=== PATIENT | male | born 1950 | race Caucasian/White ===

== ENCOUNTER → 2021-03-16 20:09 | Outpatient (CLI) | payer MEDICARE, OTHER ==
[2020-11-02 11:49] VITALS: BMI 30.3
[~2021-03-16 20:09] MED LIST: AZELASTINE137 MCG/0. NASAL; BAYER CHEWABLE81 MG PO; BYSTOLIC5 MG PO; CHLOR-TRIMETON4 MG PO; CLARITIN 10 MG10 MG PO; FLOMAX0.4 MG PO; HCTZ25 MG PO; LEVOXYL75 MCG PO; LIVALO2 MG PO; NORVASC10 MG PO; NORVASC5 MG PO; PEPCID AC20 MG PO; PLAVIX75 MG PO; RESTASIS; SUDOGEST PE10 MG PO
[2021-03-16 21:00] LABS: CHOL - HDL RATIO 2.9 ratio (2.3-4.9); LDL-HDL RATIO 0.6 ratio (1.5-3.5)
== END | disposition home or self-care (01) ==
LOC: D.LDO 20:09
PROVIDERS: ATTEND Internal Medicine
DX: E78.5 Hyperlipidemia, unspecified (principal)